=== PATIENT | female | born 1970 | race Caucasian/White ===

== ENCOUNTER 2019-04-14 11:05 | Emergency (ER) | payer OTHER ==
[2019-04-14] MEDS ORDERED: Lorazepam 1 MG TAB ONE (11:26)
== END 2019-04-14 11:37 | disposition home or self-care (01) ==
LOC: SCSER 11:05
DX: T38.0X5A Adverse effect of glucocorticoids and synthetic analogues, initial encounter (principal); R25.1 Tremor, unspecified; F17.210 Nicotine dependence, cigarettes, uncomplicated
CPT/HCPCS: 99283

== ENCOUNTER 2019-06-11 12:31 | Outpatient (CLI) | payer OTHER ==
--- NOTE | 2019-06-12 08:13 | MMO ---
Bilateral MAMMO Bilat Screen DDI. CLINICAL HISTORY: Patient is 48 years old and is seen for screening. The patient has no family history of breast cancer. The patient has no personal history of cancer. VIEWS: The views performed were: bilateral craniocaudal and bilateral mediolateral oblique. This study has been interpreted with the assistance of computer-aided detection. MAMMOGRAM FINDINGS: The breasts are heterogeneously dense, which could obscure a lesion on mammography. There are no suspicious masses, suspicious calcifications, or new areas of architectural distortion. IMPRESSION: THERE IS NO MAMMOGRAPHIC EVIDENCE OF MALIGNANCY. A ROUTINE FOLLOW-UP MAMMOGRAM IN 1 YEAR IS RECOMMENDED. ACR BI-RADS Category 1 - Negative MAMMOGRAPHY NOTE: 1. A negative mammogram report should not delay a biopsy if a dominant of clinically suspicious mass is present. 2. Approximately 10% to 15% of breast cancers are not detected by mammography. 3. Adenosis and dense breasts may obscure an underlying neoplasm. Reported by: MAURO PERSON MD Electonically Signed: [id number]
== END 2019-06-11 12:32 | disposition home or self-care (01) ==
LOC: SCSMAMMO 12:31
PROVIDERS: ATTEND Nurse Practitioner Family
DX: Z12.31 Encounter for screening mammogram for malignant neoplasm of breast (principal)
CPT/HCPCS: 77067

== ENCOUNTER 2020-06-23 09:17 | Outpatient (CLI) | payer OTHER ==
--- NOTE | 2020-06-23 10:03 | ULT ---
US Thyroid STANDARD: 06/23/2020 12:00 AM CLINICAL INDICATION: Thyroid nodule. COMPARISON: None. FINDINGS: The right thyroid lobe measures 4.5 cm and the left thyroid lobe measures 2.5cm. Scattered nodules are seen in both thyroid lobes. There is a large nodule on the right with significa nt shadowing secondary to dense calcifications. This is well-circumscribed and measures 1.6 cm in greatest dimension. There are nodules in the left thyroid lobe. The largest nodule is hypoechoic and well-circumscribed w ithout suspicious calcifications and measures 1.3 cm in greatest dimension. No cervical lymphadenopathy is noted. IMPRESSION: Multinodular thyroid. The most suspicious lesion is the hypoechoic lesion in the left thyroid lobe. TIRADS category 4 -a follow-up ultrasound at one year, 2 years, 3 years, and 5 years is recommended
== END 2020-06-23 09:18 | disposition home or self-care (01) ==
LOC: SCSULT 09:17
PROVIDERS: ATTEND Internal Medicine Endocrinology, Diabetes & Metabolism
DX: E04.2 Nontoxic multinodular goiter (principal)
CPT/HCPCS: 76536

== ENCOUNTER 2021-01-13 17:30 | Outpatient (CLI) | payer OTHER | END 2021-01-13 17:31 | disposition home or self-care (01) | LOC: SLEEPLAB 17:30 | PROVIDERS: ATTEND Nurse Practitioner Family | DX: G47.9 Sleep disorder, unspecified (principal); G47.61 Periodic limb movement disorder; G47.33 Obstructive sleep apnea (adult) (pediatric); R53.83 Other fatigue; R09.89 Other specified symptoms and signs involving the circulatory and respiratory systems; G47.00 Insomnia, unspecified | CPT/HCPCS: 95806 ==

== ENCOUNTER 2021-08-31 12:32 | Outpatient (CLI) | payer OTHER | END 2021-08-31 12:33 | disposition home or self-care (01) | LOC: SCSRAD 12:32 | PROVIDERS: ATTEND Nurse Practitioner Family | DX: K59.00 Constipation, unspecified (principal) | CPT/HCPCS: 74018 ==